=== PATIENT | male | born 1985 | race Caucasian/White ===

== ENCOUNTER → 2025-06-22 13:36 | Outpatient (CLI) | payer OTHER, SELFPAY ==
--- NOTE | 2025-06-22 13:37 | DI.RAD.S_ITS ---
PROCEDURE: XR ANKLE LT MIN 3V INDICATIONS: Left ankle pain TECHNIQUE: 3 views of the ankle were acquired. COMPARISON: None. FINDINGS: Bones: No acute fractures or dislocations. Small ossifications adjacent to the medial and lateral malleoli are likely the sequela of remote prior injuries. Small osteochondral lesion is seen at the lateral talar dome with possible in situ osteochondral fragment. Ankle mortise is normally aligned. No suspicious bony lesions. Soft tissues: No tibiotalar joint effusion. Achilles tendon appears normal. IMPRESSION: Osteochondral lesion at the lateral talar dome with possible unstable in situ osteochondral fragment. Consider MRI for further evaluation. Dictated by: Alem MASCORRO Interpreted: Alexander Mcmanus MD on 06/22/2025 at 14:33 Transcribed by: [email or web address] on 06/22/2025 at 14:34 Approved by: Alexander Mcmanus M.D. on 06/22/2025 at 19:58
== END ==
PROVIDERS: PCP Family Medicine; Referring Provider Family Medicine; Visit Provider Family Medicine
DX: M25.572 Pain in left ankle and joints of left foot (principal); G89.29 Other chronic pain
CPT/HCPCS: 73610

== ENCOUNTER → 2025-06-27 09:58 | Outpatient (CLI) | payer OTHER, SELFPAY ==
[2025-06-27 10:27] LABS: Add Manual Diff / Slide Review NO; Hematocrit 45.3 % (41-53); Hemoglobin 15.5 g/dL (13.5-17.5); Lymphocytes Absolute Auto 1000 /uL (1100-4500); Mean Corpuscular HGB Conc 34.3 % (30-36); Mean Corpuscular Hemoglobin 30.8 PG (26-34); Mean Corpuscular Volume 89.8 fL (80-100); Platelet Count 154 X10^3/uL (150-400)
[2025-06-27 10:40] LABS: Hemoglobin A1C% w Est Avg Glu 5.0 % (4.0-6.0)
[2025-06-27 10:48] LABS: Alanine Aminotransferase 23 IU/L (<50); Albumin 4.3 g/dL (3.5-5.0); Albumin Globulin Ratio 1.4 (1.0-2.8); Alkaline Phosphatase 69 U/L (38-126); Blood Urea Nitrogen 20 mg/dL (9-20); Calcium 9.2 mg/dL (8.4-10.2); Carbon Dioxide 31 mmol/L (22-32); Chloride 101 mmol/L (98-107); Cholesterol 181 mg/dL (140-199); Estimated Glomerular Filt Rate > 60 mL/min (>60); Globulin 3.1 g/dL (1.7-4.1); Glucose 98 mg/dL (70-99); HDL Cholesterol 68 mg/dL (40-60); HEMOLYSIS < 15 (0-50); Potassium 4.7 mmol/L (3.4-5.1); Sodium 136 mmol/L (137-145); Total Protein 7.4 g/dL (6.3-8.2); Triglycerides 92 mg/dL (35-150)
== END ==
PROVIDERS: PCP Family Medicine; Referring Provider Family Medicine; Visit Provider Family Medicine
DX: Z00.00 Encounter for general adult medical examination without abnormal findings (principal); E78.5 Hyperlipidemia, unspecified; Z13.1 Encounter for screening for diabetes mellitus
CPT/HCPCS: 36415; 80053; 80061; 83036; 85025

== ENCOUNTER → 2025-07-06 11:56 | Outpatient (CLI) | payer OTHER, SELFPAY ==
--- NOTE | 2025-07-06 11:57 | DI.MRI.S_ITS ---
PROCEDURE: MR ANKLE LT WO CON INDICATIONS: Left ankle pain, abnormal ankle XR TECHNIQUE: Noncontrast sagittal T1 spin echo and T2 fast spin echo with fat saturation, axial proton density fast spin echo and T2 fast spin echo with fat saturation, coronal T1 spin echo and T2 fast spin echo with fat saturation through the ankle/hindfoot. COMPARISON: [facility], CR, XR ANKLE LT MIN 3V, 06/22/2025, 12:46. FINDINGS: Image quality: Excellent. 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 Osteochondral injuries are noted involving lateral weight-bearing portion of talar dome with extensive marrow edema. Smaller osteochondral injuries are also noted involving adjacent lateral aspect of distal tibial plafond. No acute fracture or dislocation. Small tibiotalar and subtalar joint effusion, no loose bodies. Medial structures: The posterior tibialis, flexor digitorum longus, and flexor hallucis longus tendons are intact. The posterior tibial neurovascular bundle appears normal within the tarsal tunnel, without extrinsic mass effect. The deltoid ligament and spring ligament are grossly intact. Lateral structures: The anterior talofibular ligament is thickened with intrasubstance T2 hyperintense signal. The calcaneofibular, and posterior talofibular ligaments appear mildly thickened. More superiorly, the anterior a tibial fibular ligament is thickened with intrasubstance T2 hyperintense signal. The posterior tibial fibular ligament is intact. The tibiofibular syndesmosis is normal in width at 2 mm or less. The peroneus longus and brevis tendons demonstrate normal location and morphology. The sinus tarsi demonstrates normal fatty signal, without edema, fibrosis, or cyst formation. Anterior structures: The tibialis anterior, extensor hallucis longus, and extensor digitorum longus tendons appear intact. The dorsal talonavicular ligament appears intact. Posterior and plantar structures: Achilles tendon is mildly thickened at its insertion of posterior calcaneus with surrounding edema. Medial and lateral bands of the plantar fascia are of normal thickness. No abductor digiti quinti muscle atrophy to suggest Owen neuropathy. IMPRESSION: 1. [id number] tibiotalar joint osteoarthritis with osteochondral injuries involving lateral weight-bearing portion of talar dome and adjacent distal tibial plafond as above. No acute fracture or dislocation. Small joint effusion, no loose bodies. 2. Low to moderate grade intrasubstance partial-thickness tear involving anterior talofibular ligament and anterior tibial fibular ligament. Low-grade sprain involving calcaneal fibular ligament and posterior talofibular ligament. No full- thickness ankle ligament rupture. 3. Extensor, flexor, and peroneus tendons are intact. Distal Achilles tendinosis. No Achilles tendon rupture. Dictated by: Noel Rucker M.D. on 07/06/2025 at 13:08 Approved by: Noel Rucker M.D. on 07/06/2025 at 13:12
== END ==
LOC: MRI 11:57
PROVIDERS: PCP Family Medicine; Referring Provider Family Medicine; Visit Provider Family Medicine
DX: S93.432A Sprain of tibiofibular ligament of left ankle, initial encounter (principal); S93.492A Sprain of other ligament of left ankle, initial encounter; S93.412A Sprain of calcaneofibular ligament of left ankle, initial encounter; M19.072 Primary osteoarthritis, left ankle and foot; M25.572 Pain in left ankle and joints of left foot; R93.89 Abnormal findings on diagnostic imaging of other specified body structures; M25.472 Effusion, left ankle
CPT/HCPCS: 73721

== ENCOUNTER → 2025-07-26 12:05 | Outpatient (CLI) | payer OTHER, SELFPAY ==
[2025-07-26 12:56] LABS: Alanine Aminotransferase 25 IU/L (<50); Albumin 4.4 g/dL (3.5-5.0); Albumin Globulin Ratio 1.4 (1.0-2.8); Alkaline Phosphatase 65 U/L (38-126); Blood Urea Nitrogen 22 mg/dL (9-20); Calcium 9.2 mg/dL (8.4-10.2); Carbon Dioxide 29 mmol/L (22-32); Chloride 100 mmol/L (98-107); Estimated Glomerular Filt Rate 56 mL/min (>60); Globulin 3.1 g/dL (1.7-4.1); Glucose 100 mg/dL (70-99); HEMOLYSIS < 15 (0-50); Potassium 4.4 mmol/L (3.4-5.1); Sodium 139 mmol/L (137-145); Total Protein 7.5 g/dL (6.3-8.2)
== END ==
PROVIDERS: PCP Family Medicine; Referring Provider Family Medicine; Visit Provider Family Medicine
DX: R79.89 Other specified abnormal findings of blood chemistry (principal); R77.9 Abnormality of plasma protein, unspecified
CPT/HCPCS: 36415; 80053

== ENCOUNTER → 2025-08-07 10:01 | Outpatient (CLI) | payer OTHER, SELFPAY ==
--- NOTE | 2025-08-07 10:03 | DI.RAD.S_ITS ---
PROCEDURE: XR THORACIC SPINE 2V INDICATIONS: ongoing back pain TECHNIQUE: AP and lateral views of the thoracic spine were acquired. COMPARISON: None. FINDINGS: Bones: No fractures or dislocations. No suspicious bony lesions. 12 pairs of ribs are noted, and appear intact where visualized. Mild multilevel disc narrowing predominant fat in the mid to upper thoracic spine. No scoliosis or listhesis. Soft tissues: No paravertebral stripe thickening. IMPRESSION: No acute fracture. Mild multilevel degenerative disc disease. Dictated by: Elena Joe M.D. on 08/07/2025 at 23:48 Approved by: Elena Joe M.D. on 08/07/2025 at 23:49
== END ==
PROVIDERS: PCP Family Medicine; Referring Provider Family Medicine; Visit Provider Family Medicine
DX: M51.34 Other intervertebral disc degeneration, thoracic region (principal); M54.9 Dorsalgia, unspecified; G89.29 Other chronic pain
CPT/HCPCS: 72070